=== PATIENT | male | born 1960 | race Two or more races ===

== ENCOUNTER 2019-08-17 07:28 | Inpatient (IN) | payer OTHER ==
[~2019-08-17] VITALS: Ht 165.1 cm; Wt 61.0 kg
--- NOTE | 2019-08-17 07:42 | NUR ---
pt daughter, Ying, number [phone]. Pt ambulated back to room 34, smooth steady gait, mask in place. Pt is COVID positive.
--- NOTE | 2019-08-17 07:58 | NUR ---
Dr Lira at bedside, assessing and discussing plan of care with pt. Pt denies additional needs, place on monitor and given 2L O2 NC. Call light within reach, WCTM.
[2019-08-17] MEDS ORDERED: ACETAMINOPHEN 500 MG TABLET PO ONE (08:00)
[2019-08-17] MEDS ORDERED: IBUPROFEN 800 MG TABLET PO ONE (08:00)
[2019-08-17 08:31] LABS: BASOPHILS # (AUTO) 0.01 x10^3/uL (0-0.1); BASOPHILS % (AUTO) 0 % (0-1); EOSINOPHILS # (AUTO) 0.02 x10^3/uL (0-0.4); EOSINOPHILS % (AUTO) 0 % (1-7); LYMPHOCYTES # (AUTO) 0.96 x10^3/uL (1-3.4); LYMPHOCYTES % (AUTO) 7 % (22-44); MD NO; MEAN CORPUSCULAR HEMOGLOBIN 31.2 pg (27.5-34.5); MEAN CORPUSCULAR HGB CONC 33.6 g/dL (33.2-36.2); MEAN CORPUSCULAR VOLUME 92.8 fL (81-97); MEAN PLATELET VOLUME 7.9 fL (7.4-10.4); MONOCYTES # (AUTO) 0.48 x10^3/uL (0.2-0.8); MONOCYTES % (AUTO) 4 % (2-9); NEUTROPHILS # (AUTO) 12.36 x10^3/uL (1.8-6.8); NEUTROPHILS % (AUTO) 90 % (42-75); PLATELET COUNT 203 x10^3/uL (130-400); RED BLOOD COUNT 4.12 x10^6/uL (4.38-5.82)
[2019-08-17] MEDS ORDERED: IBUPROFEN 600 MG TABLET ONE (08:33)
[2019-08-17] MEDS ORDERED: IBUPROFEN 200 MG TABLET ONE (08:33)
[2019-08-17] MEDS ORDERED: ACETAMINOPHEN 500 MG TABLET ONE (08:33)
--- NOTE | 2019-08-17 08:39 | NUR ---
Pt medicated per MAR, see MAR for interventions, denies additional needs, lights dimmed for comfort, pt in sitting in joe velazquez unlabored respirations noted, eyes open , conversing with RN, NAD, NC and mask on. Waiting on Rad and Lab results. WCTM
[2019-08-17 08:40] LABS: ALBUMIN 2.8 g/dL (3.4-5.0); ANION GAP 7 mmol/L (5-15); CALCIUM 8.9 mg/dL (8.5-10.1); CHLORIDE 103 mmol/L (98-107); CREATININE 0.91 mg/dL (0.7-1.3)
[2019-08-17] MEDS ORDERED: LIDODERM 5% PATCH TD PRN (09:00)
--- NOTE | 2019-08-17 09:06 | NUR ---
DAUGHTER WOULD LIKE AN UPDATE [phone] (KRISTEN)
[2019-08-17] MEDS ORDERED: CEFTRIAXONE PMX 1GM/50ML 50 ML ONE (09:25)
[2019-08-17] MEDS ORDERED: AZITHROMYCIN 500 MG in SODIUM CHLORIDE 0.9% 250 ML IV ONE (09:30)
[2019-08-17] MEDS ORDERED: CEFTRIAXONE PMX 1GM/50ML 50 ML IV ONE (09:30)
[2019-08-17] MEDS ORDERED: SODIUM CHLORIDE 0.9% 1,000ML IVBOLUS ONE ×2 (09:30→13:00)
--- NOTE | 2019-08-17 09:49 | NUR ---
Uri MIRZA at bedside, dicussed plan of care, pt resting in gurney, NAD, denies additional needs, call light within reach, given urinal, WCTM.
--- NOTE | 2019-08-17 09:50 | NUR ---
preceptor RN note: MD Grewal at bedside, aware of current BP. NS bolus infusing, pt tolerating well. pt states "I am feeling much better." pt a&o, resps even and unlabored, speaking in full sentences without difficulty. pt is NSR on registered nurse cardiac telemetry without ectopy, rate 60-70's. call light in reach. pt has no complaint at this time.
[2019-08-17] MEDS: SODIUM CHLORIDE 0.9% 1,000 ML IV SCH ×2 (09:52→20:39)
[2019-08-17] MEDS ORDERED: PROMETHAZINE 25 MG/ML, 1ML IM PRN (10:00)
[2019-08-17] MEDS ORDERED: hydrALAzine 20 MG/ML, 1ML IVPush PRN (10:00)
[2019-08-17] MEDS ORDERED: TRAZODONE 50MG TABLET PO PRN (10:00)
[2019-08-17] MEDS ORDERED: LABETALOL 5MG/ML, 20ML IVPush PRN (10:00)
[2019-08-17] MEDS ORDERED: ONDANSETRON ODT 4 MG PO PRN (10:00)
[2019-08-17] MEDS ORDERED: CYCLOBENZAPRINE 10 MG TABLET PO PRN (10:00)
[2019-08-17] MEDS ORDERED: DOCUSATE 100 MG CAPSULE PO PRN (10:00)
[2019-08-17] MEDS ORDERED: POLYETHYLENE GLYCOL 17 GM PACKET PO PRN (10:00)
[2019-08-17] MEDS ORDERED: GUAIFENESIN/DM 200-20MG, 10ML UDC PO PRN (10:00)
[2019-08-17 10:20] LABS: ALBUMIN 2.8 g/dL (3.4-5.0); BILIRUBIN, DIRECT 0.4 mg/dL (0.1-0.2)
[2019-08-17 10:22] LABS: BILIRUBIN,INDIRECT 0.7 mg/dL (0.0-2.0); BILIRUBIN,TOTAL 1.1 mg/dL (0.2-1.0); TOTAL PROTEIN 7.2 g/dL (6.4-8.2)
--- NOTE | 2019-08-17 10:35 | NUR ---
Called Uri MIRZA to notify that pt meets septic shock criteria with map of 62, declines to provide any additional orders at this time. Pt resting in gurney, NAD, eye closed, even and unlabored respirations, WCTM.
--- NOTE | 2019-08-17 11:06 | NUR ---
PT MEDICATED PER MAR, CHECK MAR FOR INTERVENTIONS, LIGHTS TURNED OFF FOR PAITENT COMFORT, DENIES ADDITIONAL NEEDS, CALL LIGHT WITHIN REACH, NAD, PT CONVERSED WITH RN IN FULL SENTENCES, EVEN AND UNLABORED RESPIRATIONS, WCTM.
--- NOTE | 2019-08-17 11:15 | NUR ---
preceptor RN note: MD Grewal called to notify map is 62 with bp 88/49. HR remaining 50-60s. spo2 and respiratory effort maintained. MD still declines to order additional fluid bolus or vasoactive medication. MD states pt still ok to admit to med/surg as long as he is not having symptoms of hypotension. at this time pt is a&ox4, resps even and unlabored, denying dizziness, pt able to speak in full sentences without difficulty. IV maintenance fluid and zithromax infusing via pump at this time. BP monitored closely by this RN.
[2019-08-17] MEDS: ENOXAPARIN 40 MG/0.4 ML SQ SCH (11:22)
--- NOTE | 2019-08-17 11:47 | NUR ---
pt helped to bedside commode, call light within reach, NAD, on monitor, WCTM.
--- NOTE | 2019-08-17 12:17 | NUR ---
Pt resting back in gurney, commode emptied small and soft bm, call light within reach, denies additional needs, NAD, even and unlabored respirations, reports pain is decreased, WCTM.
--- NOTE | 2019-08-17 12:47 | NUR ---
Uri MIRZA called for pt BP 87/49, ordered 1L bolus NS and MidodrineUri to bedside to assess pt. Discussed plan of care. WCEVAN.
--- NOTE | 2019-08-17 13:07 | NUR ---
preceptor RN note: MD aware pt had symptomatic hypotension (reported dizziness) with last bp 87/49. 1L NS ordered and infused. BP improved. MD notified pt had c/o right lower lung pain and was medicated with ultram, pt now denies pain. MD instructed RN to administer midodrine if SBP <100 after NS bolus. BP 100/59 at this time.
--- NOTE | 2019-08-17 13:33 | NUR ---
Teri ansari in ED - 08/17/19 at 1336 by TOD Pt resting in gurney, denies additional needs, conversing on phone, full sentences without sob, NAD, even and unlabored respirations, WCTM.
--- NOTE | 2019-08-17 13:38 | NUR ---
Pt resting in gurney, denies additional needs, reports decrease in dizziness feeling, conversing on phone, full sentences without sob, NAD, even and unlabored respirations, WCTM.
[2019-08-17] MEDS: MIDODRINE 5 MG TABLET PO SCH ×3 (13:39→20:39)
--- NOTE | 2019-08-17 13:41 | NUR ---
preceptor RN note: pt resting on gurney, resps even and unlabored. denies pain, reports dizziness improved. pt is sinus kelly at rate 50's with no ectopy on monitor. oxygen titrated down, spo2 remains 98-99% on room air at this time.
--- NOTE | 2019-08-17 14:02 | NUR ---
REPORT GIVEN TO CARLOS ENRIQUE TRIPLETT. PT AWAITING TRANSPORT TO MEDICAL FLOOR AT THIS TIME. REPORT GIVEN TO EDRN MARTHA WHO IS TO TRANSPORT PT TO MEDICAL FLOOR. PT IS A&O, RESPS EVEN AND UNLABORED. PT DENIES PAIN. PT DENIES DIZZINESS. PT IS SINUS SARABJIT, RATE 50-60S WITH NO ECTOPY, TOLERATING ROOM AIR AT 96-98%.
[2019-08-17 15:07] VITALS: BP 111/65
[2019-08-17 15:19] VITALS: BP 111/65
[2019-08-17 20:35] VITALS: BP 102/62
[2019-08-17] MEDS: LIDODERM REMOVE PATCH NOTE XX SCH (20:42)
[2019-08-17] MEDS: ACETAMINOPHEN 325 MG TABLET PO PRN (20:43)
[2019-08-18 01:25] VITALS: BP 103/61
[2019-08-18 06:14] LABS: BASOPHILS % (AUTO) 0 % (0-1); EOSINOPHILS # (AUTO) 0.05 x10^3/uL (0-0.4); EOSINOPHILS % (AUTO) 0 % (1-7); LYMPHOCYTES # (AUTO) 1.36 x10^3/uL (1-3.4); LYMPHOCYTES % (AUTO) 11 % (22-44); MD NO; MEAN CORPUSCULAR HEMOGLOBIN 31.2 pg (27.5-34.5); MEAN CORPUSCULAR HGB CONC 33.7 g/dL (33.2-36.2); MEAN CORPUSCULAR VOLUME 92.6 fL (81-97); MEAN PLATELET VOLUME 8.4 fL (7.4-10.4); MONOCYTES # (AUTO) 0.39 x10^3/uL (0.2-0.8); MONOCYTES % (AUTO) 3 % (2-9); NEUTROPHILS # (AUTO) 10.47 x10^3/uL (1.8-6.8); NEUTROPHILS % (AUTO) 85 % (42-75); PLATELET COUNT 194 x10^3/uL (130-400); RED BLOOD COUNT 3.85 x10^6/uL (4.38-5.82); RED CELL DISTRIBUTION WIDTH 13.8 % (9.4-14.8)
[2019-08-18 06:23] LABS: ALANINE AMINOTRANSFERASE 107 U/L (12-78); ALBUMIN 2.1 g/dL (3.4-5.0); ANION GAP 5 mmol/L (5-15); CALCIUM 8.3 mg/dL (8.5-10.1); CHLORIDE 107 mmol/L (98-107)
[2019-08-18 06:26] LABS: ALKALINE PHOSPHATASE 212 U/L (45-117); BILIRUBIN,TOTAL 0.5 mg/dL (0.2-1.0); TOTAL PROTEIN 6.1 g/dL (6.4-8.2)
[2019-08-18] MEDS: SODIUM CHLORIDE 0.9% 1,000 ML IV SCH ×2 (06:36→16:02)
[2019-08-18 07:55] VITALS: BP_SYST 102; BP_SYST 103; BP_DIAS 51; BP_DIAS 61
[2019-08-18] MEDS ORDERED: AZITHROMYCIN 500 MG TABLET PO ONE (09:00)
[2019-08-18] MEDS: MIDODRINE 5 MG TABLET PO SCH ×3 (09:00→21:00)
[2019-08-18] MEDS: HYDROXYCHLOROQUINE 200 MG TABLET PO SCH ×2 (09:37→21:54)
[2019-08-18] MEDS: ACETAMINOPHEN 325 MG TABLET PO PRN (09:37)
[2019-08-18] MEDS: ASCORBIC ACID 500 MG TABLET PO SCH ×2 (09:39→16:02)
[2019-08-18] MEDS: CEFTRIAXONE PMX 1GM/50ML 50 ML IV SCH (09:39)
[2019-08-18] MEDS: ENOXAPARIN 40 MG/0.4 ML SQ SCH (09:39)
[2019-08-18 13:06] VITALS: BP 94/52
[2019-08-18] MEDS: LIDODERM REMOVE PATCH NOTE XX SCH (21:00)
[2019-08-18 21:52] VITALS: BP 114/63
[2019-08-19] MEDS: SODIUM CHLORIDE 0.9% 1,000 ML IV SCH (02:16)
[2019-08-19 02:19] VITALS: BP 115/52
[2019-08-19 08:22] VITALS: BP 123/61
[2019-08-19 08:52] LABS: BASOPHILS # (AUTO) 0.02 x10^3/uL (0-0.1); BASOPHILS % (AUTO) 0 % (0-1); EOSINOPHILS # (AUTO) 0.04 x10^3/uL (0-0.4); EOSINOPHILS % (AUTO) 1 % (1-7); LYMPHOCYTES # (AUTO) 1.23 x10^3/uL (1-3.4); LYMPHOCYTES % (AUTO) 19 % (22-44); MD NO; MEAN CORPUSCULAR HEMOGLOBIN 31.3 pg (27.5-34.5); MEAN CORPUSCULAR HGB CONC 33.4 g/dL (33.2-36.2); MEAN CORPUSCULAR VOLUME 93.8 fL (81-97); MEAN PLATELET VOLUME 7.8 fL (7.4-10.4); MONOCYTES # (AUTO) 0.55 x10^3/uL (0.2-0.8); MONOCYTES % (AUTO) 9 % (2-9); NEUTROPHILS # (AUTO) 4.52 x10^3/uL (1.8-6.8); NEUTROPHILS % (AUTO) 71 % (42-75); PLATELET COUNT 242 x10^3/uL (130-400); RED BLOOD COUNT 3.57 x10^6/uL (4.38-5.82); RED CELL DISTRIBUTION WIDTH 13.3 % (9.4-14.8)
[2019-08-19 08:55] LABS: ALANINE AMINOTRANSFERASE 80 U/L (12-78); ANION GAP 4 mmol/L (5-15); CALCIUM 8.2 mg/dL (8.5-10.1); CHLORIDE 109 mmol/L (98-107); CREATININE 0.61 mg/dL (0.7-1.3)
[2019-08-19 08:57] LABS: ALKALINE PHOSPHATASE 209 U/L (45-117); BILIRUBIN,TOTAL 0.5 mg/dL (0.2-1.0)
[2019-08-19] MEDS: MIDODRINE 5 MG TABLET PO SCH ×3 (09:00→21:00)
[2019-08-19] MEDS: ZINC SULFATE 220 MG CAPSULE PO SCH (09:07)
[2019-08-19] MEDS: AZITHROMYCIN 500 MG in SODIUM CHLORIDE 0.9% 250 ML IV SCH (09:07)
[2019-08-19] MEDS: HYDROXYCHLOROQUINE 200 MG TABLET PO SCH ×2 (09:08→21:57)
[2019-08-19] MEDS: CHOLECALCIFEROL 1,000 UNIT TABLET PO SCH (09:08)
[2019-08-19] MEDS: ASCORBIC ACID 500 MG TABLET PO SCH ×2 (09:08→15:55)
[2019-08-19] MEDS: CEFTRIAXONE PMX 1GM/50ML 50 ML IV SCH (10:29)
[2019-08-19] MEDS: ENOXAPARIN 40 MG/0.4 ML SQ SCH (10:29)
[2019-08-19 12:21] VITALS: BP 105/53
[2019-08-19 16:12] VITALS: BP 99/46
[2019-08-19 19:33] VITALS: BP 117/63
[2019-08-19] MEDS: LIDODERM REMOVE PATCH NOTE XX SCH (21:00)
[2019-08-20 04:00] VITALS: BP 128/69
[2019-08-20 08:00] VITALS: BP 99/46
[2019-08-20] MEDS: MIDODRINE 5 MG TABLET PO SCH ×4 (09:00→20:06)
[2019-08-20] MEDS: CEFTRIAXONE PMX 1GM/50ML 50 ML IV SCH (09:04)
[2019-08-20] MEDS: ASCORBIC ACID 500 MG TABLET PO SCH ×2 (09:04→16:59)
[2019-08-20] MEDS: ZINC SULFATE 220 MG CAPSULE PO SCH (09:04)
[2019-08-20] MEDS: HYDROXYCHLOROQUINE 200 MG TABLET PO SCH ×2 (09:04→20:29)
[2019-08-20] MEDS: CHOLECALCIFEROL 1,000 UNIT TABLET PO SCH (09:04)
[2019-08-20] MEDS: AZITHROMYCIN 500 MG in SODIUM CHLORIDE 0.9% 250 ML IV SCH (09:30)
[2019-08-20] MEDS: ENOXAPARIN 40 MG/0.4 ML SQ SCH (10:00)
[2019-08-20 14:00] VITALS: BP 109/51
[2019-08-20 19:27] VITALS: BP 125/65
[2019-08-20] MEDS: LIDODERM REMOVE PATCH NOTE XX SCH (20:07)
[2019-08-21 03:12] VITALS: BP 111/62
[2019-08-21 08:00] VITALS: BP 131/65
[2019-08-21 08:00] LABS: ALBUMIN 2.1 g/dL (3.4-5.0); ANION GAP 7 mmol/L (5-15); CALCIUM 8.6 mg/dL (8.5-10.1); CHLORIDE 105 mmol/L (98-107)
[2019-08-21 08:26] LABS: ALANINE AMINOTRANSFERASE 101 U/L (12-78); ALKALINE PHOSPHATASE 289 U/L (45-117); BILIRUBIN,TOTAL 0.9 mg/dL (0.2-1.0); TOTAL PROTEIN 6.6 g/dL (6.4-8.2)
[2019-08-21] MEDS: ZINC SULFATE 220 MG CAPSULE PO SCH (08:51)
[2019-08-21] MEDS: HYDROXYCHLOROQUINE 200 MG TABLET PO SCH (08:52)
[2019-08-21] MEDS: ASCORBIC ACID 500 MG TABLET PO SCH (08:52)
[2019-08-21] MEDS: CHOLECALCIFEROL 1,000 UNIT TABLET PO SCH (08:52)
[2019-08-21] MEDS: CEFTRIAXONE PMX 1GM/50ML 50 ML IV SCH (08:52)
[2019-08-21] MEDS: MIDODRINE 5 MG TABLET PO SCH (08:53)
[2019-08-21] MEDS: AZITHROMYCIN 500 MG in SODIUM CHLORIDE 0.9% 250 ML IV SCH (10:00)
[2019-08-21] MEDS: ENOXAPARIN 40 MG/0.4 ML SQ SCH (10:30)
[2019-08-21] MEDS ORDERED: ZINC220C7 PO (11:58)
[2019-08-21] MEDS ORDERED: CHOL10003 PO (11:58)
[2019-08-21] MEDS ORDERED: CEFD300C37 PO (11:58)
[2019-08-21] MEDS ORDERED: ASCO500T6 PO (11:58)
[2019-08-21] MEDS ORDERED: GUAI5SYR PO (11:58)
[2019-08-21] MEDS ORDERED: HYDR200T5 PO (11:58)
[2019-08-21 12:23] VITALS: BP 166/63
[2019-08-21] MEDS ORDERED: HYDROXYCHLOROQUINE 200 MG TABLET PO SCH (13:00)
== END 2019-08-21 13:00 | disposition home or self-care (01) | DRG 177 ==
LOC: ED 07:50 → EDIP 09:30 → 3E 14:39
PROVIDERS: ADMIT Internal Medicine; ATTEND Hospitalist
DX: U07.1 COVID-19 (principal); A41.89 Other specified sepsis; J12.89 Other viral pneumonia; J96.01 Acute respiratory failure with hypoxia; I95.9 Hypotension, unspecified
CPT/HCPCS: 36415; 71045; 80048; 80053; 80076; 82040; 82550; 83605; 83615; 83735; 84100; 85025; 87040; 87070; 87205; 93005; 96361; 96374; 96375; G0378; J0456; J0696; J1650; J2550; J7030; J7050

== ENCOUNTER → 2019-09-23 | Outpatient (CLI) | payer MEDICAID ==
[~2019-09-23] MED LIST: ASCO500T6 PO; CEFD300C37 PO; CHOL10003 PO; GUAI5SYR PO; HYDR200T5 PO; ZINC220C7 PO
== END | disposition home or self-care (01) ==
LOC: RAD 15:39
PROVIDERS: ATTEND Family Medicine
DX: U07.1 COVID-19 (principal); J12.89 Other viral pneumonia
CPT/HCPCS: 71046

== ENCOUNTER 2019-10-17 21:18 | Emergency (ER) | payer MEDICAID ==
[~2019-10-17] VITALS: Ht 165.1 cm; Wt 67.3 kg
[~2019-10-17 21:18] MED LIST changes: -ASCO500T6 PO; +ASCO500T9 PO
[2019-10-17] MEDS ORDERED: LIDODERM 5% PATCH TD ONE ×2 (21:55→22:00)
[2019-10-17] MEDS ORDERED: IBUPROFEN 600 MG TABLET ONE (21:55)
[2019-10-17] MEDS ORDERED: ACETAMINOPHEN 500 MG TABLET ONE (21:56)
[2019-10-17] MEDS ORDERED: IBUPROFEN 200 MG TABLET PO ONE (22:00)
[2019-10-17] MEDS ORDERED: ACETAMINOPHEN 500 MG TABLET PO ONE (22:00)
--- NOTE | 2019-10-17 22:03 | NUR ---
PATIENT GIVEN MEDICATIONS, TOLERATED WELL. EDUCATION GIVEN TO PATIENT AND DAUGHTER PERTAINING TO LIDOCAINE PATCHES AND CORRECT PLACEMENT FOR HOME USE. PATIENT AND DAUGHTER VERBALIZED UNDERSTANDING OF EDUCATION.
[2019-10-17 22:26] LABS: MICROSCOPIC NOT IND
[2019-10-17 22:27] LABS: BASOPHILS # (AUTO) 0.02 x10^3/uL (0-0.1); BASOPHILS % (AUTO) 0 % (0-1); EOSINOPHILS # (AUTO) 0.29 x10^3/uL (0-0.4); EOSINOPHILS % (AUTO) 5 % (1-7); LYMPHOCYTES # (AUTO) 2.59 x10^3/uL (1-3.4); LYMPHOCYTES % (AUTO) 44 % (22-44); MD NO; MEAN CORPUSCULAR HEMOGLOBIN 31.8 pg (27.5-34.5); MEAN CORPUSCULAR VOLUME 93.5 fL (81-97); MEAN PLATELET VOLUME 8.4 fL (7.4-10.4); MONOCYTES % (AUTO) 10 % (2-9); NEUTROPHILS # (AUTO) 2.43 x10^3/uL (1.8-6.8); NEUTROPHILS % (AUTO) 41 % (42-75); PLATELET COUNT 204 x10^3/uL (130-400); RED BLOOD COUNT 4.36 x10^6/uL (4.38-5.82); RED CELL DISTRIBUTION WIDTH 14.9 % (9.4-14.8)
[2019-10-17 22:35] LABS: ALBUMIN 3.7 g/dL (3.4-5.0); ANION GAP 6 mmol/L (5-15); CALCIUM 8.7 mg/dL (8.5-10.1); CHLORIDE 106 mmol/L (98-107); CREATININE 1.24 mg/dL (0.7-1.3)
[2019-10-17] MEDS ORDERED: DIAZEPAM 5 MG TABLET PO ONE (23:30)
[2019-10-17] MEDS ORDERED: DIAZEPAM 5 MG TABLET ONE (23:36)
[2019-10-17 23:40] VITALS: BP 107/47
--- NOTE | 2019-10-17 23:41 | NUR ---
PATIENT VERBALIZED UNDERSTANDING OF DISCHARGE INSTRUCTIONS AND SELF CARE INSTRUCTIONS AT HOME. NO NOTED ACUTE DISTRESS. VITAL SIGNS STABLE. PATIENT AMBULATORY TO DISCHARGE DESK WITHOUT COMPLICATIONS.
== END 2019-10-17 23:42 | disposition home or self-care (01) ==
LOC: ED 21:50
DX: M54.16 Radiculopathy, lumbar region (principal); M54.5 Low back pain; R39.11 Hesitancy of micturition
CPT/HCPCS: 36415; 80048; 81003; 82040; 85025; 99284